=== PATIENT | female | born 2005 | race Caucasian/White ===

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

== ENCOUNTER 2025-05-30 11:01 | Outpatient (CLI) | payer OTHER, SELFPAY | END 2025-05-30 11:02 | disposition home or self-care (01) | LOC: AMB 06-01 10:50 | PROVIDERS: Visit Provider Family Medicine | DX: R56.9 Unspecified convulsions (principal) | CPT/HCPCS: A0998 ==